=== PATIENT | female | born 1990 | race Caucasian/White ===

== ENCOUNTER 2025-07-06 14:34 | Outpatient (CLI) | payer BC, SELFPAY ==
--- NOTE | ~2025-07-06 | US_ITS ---
EXAMINATION: US OB <=14 wk fetus w TV DATE: 07/06/2025 15:06 INDICATION: . Inconclusive viability. TECHNIQUE: Real-time transabdominal and transvaginal obstetric ultrasound. FINDINGS: No prior studies for comparison. The uterus measures 13.9 x 6.5 x 8.4 cm. There is an intrauterine gestational sac, with pole identified. The crown rump length measures 5.36 cm, which correlates with a estimated gestational age of 12 weeks 0 days. heart tones are identified measuring 169 BPM.. Cervical length measures 3.6 cm. There is a corpus luteal cyst of the left ovary measuring 3.2 cm. IMPRESSION: 1. SL IUP with an EGA of 12 weeks, 0 days (EDC by current ultrasound of 01/18/2026). Reviewed, dictated and finalized at location O. IMPRESSION: 1. SL IUP with an EGA of 12 weeks, 0 days (EDC by current ultrasound of 026).
== END 2025-07-06 14:35 | disposition home or self-care (01) ==
LOC: MICIMG 14:35
PROVIDERS: PCP Obstetrics & Gynecology; Visit Provider Nurse Practitioner Family
DX: O36.80X0 Pregnancy with inconclusive fetal viability, not applicable or unspecified (principal); Z3A.12 12 weeks gestation of pregnancy
CPT/HCPCS: 76801; 76817

== ENCOUNTER 2025-08-25 21:05 | Observation (INO) | payer BC, SELFPAY ==
--- OUTSIDE RECORDS SUMMARY | 2024-04-29 16:30 | XMS_ITS ---
Author Organization [facility] ([address]) Address [address] [place] [address] Care Team Providers Care Machine Binding Folder Name Role Phone Rupal Greenberg DO Primary Care Provider Unavaila Consuelo Barnhart Unavailable [phone] ZZ-Migration, Provider Unavailable Unavailab le REASON FOR VISIT Multum To [facility] Conversion Encounter Medications Medication SIG (Take, Route, Frequency, Duration) Notes Start Date End Date Status Cetirizine HCl 10 MG 1 tab(s) orally once a day Active Tri-Sprintec 0.18/0.215/0.25 MG-35 MCG 1 tab(s) orally once a day Active Encounters Encounter Location Date Provider Diagnosis [address] [address] 04/29/2024 Provider ZZ-Migration Other urticaria L50.8 Assessments Encounter Date Diagnosis (ICD Code) Assessment Notes Treatment Notes Treatment Clinical Notes Section Notes 04/29/2024 Other urticaria (ICD-10 - L50.8) Plan Of Treatment Medication Medication Name Sig Start Date Stop Date Notes Cetirizine HCl 10 MG 1 tab(s) orally once a day Tri-Sprintec 0.18/0.215/0.25 MG-35 MCG 1 tab(s) orally once a day Progress Notes * Deborah AGUILARDOB: [birth year] (35 yo F)Acc No.[id number]:04/29/2024 Patient: Deborah LEÓN Provider: Goran Dennis :1990 A ge:33 Y S ex:Female Date:04/29/2024 Address: [address] [facility] Pcp:Rupal Greenberg DO Subjective: * Chief Complaints: * 1 . Multum To [facility] Conversion Encounter. * Medical History: Objective: * Vitals: Assessment: * Assessment: 1. O ther urticaria - L50.8 Plan: * Treatment: 2. O thers Continue Tri-Sprintec Tablet, 0.18/0.215/0.25 MG-35 MCG, 1 tab(s), orally, once a day. * Billing Information: * Visit Code: * Procedure Codes: * Electronic signature of Breanna LORENZO-Migration on 08/25/2025 at 09:09 PM CDT Sign off status: Pending * Provider: Goran delong Migration Date: 0 04/29/2024 Generated for Adilson alvarado/Larissa/Farrukh on: 1 09:09 PM CDT
--- OUTSIDE RECORDS SUMMARY | 2025-08-25 21:09 | XMS_ITS | Encounter Summary ---
Author Organization [facility] Address [address] [place] [address] Care Team Providers Care Account Classification Clerk Name Role Phone Rupal Greenberg DO Primary Care Provider [phone] Encounter Details Date Type Department Care Team (Late st Contact Info) Description 11/25/2021 MyChart Message Enc [facility] Family Medicine - [place] [address] [facility], [address] [place] [phone] Rupal Greenberg DO [address] [place], [place] [id number] Possible Allergy Social History Tobacco Use Types Packs/Day Years Used Date Smoking Tobacco: Never Smokeless Tobacco: Never Alcohol Use Standard Drinks/Week Comments Yes 0 (1 standard drink = 0.6 oz pur e alcohol) rarely AUDIT-C Answer Date Recorded Frequency of Alcohol Consumption Never 10/03/2018 Average Number of Drinks Not on file 018 Frequency of Binge Drinking Not on file 09/15 PHQ-2 Answer Date Recorded PHQ-2 Score - If the patient scores above 3, please move on to questions 3-9 0 03/31/2021 Comments No Sex and Gender Information Value Date Recorded Sex Assigned at Female 05/17/2025 1:34 PM CDT Legal Sex Female 3:31 PM TRAY SERVER Gender Identity Not on file Sexual Orientation Not on file COVID-19 Exposure Response Date Recorded In the last month, have you been in contact with someone who was confirmed or suspected to have Coronavirus / COVID-19? No / Unsure 11/25/2021 1:49 PM TRAY SERVER documented as of this encounter Progress Notes * Pamela Ivan MA - 11/25/2021 11:17 AM CST Appt made SERVER * Rupal Greenberg DO - 11/25/2021 10:39 AM CST Please make a video visit to discuss or in person SERVER documented in this encounter Plan of Treatment Not on file documented as of this encounter Visit Diagnoses Not on filedocumented in this encounter Additional Health Concerns Infection Onset Date Last Indicated Resolved Time COVID-19 Rule Out 12/15/2024 12/15/2024 12/15/2024 2:14 PM TRAY SERVER Assessment Noted Time PHQ-9 Depression Total Score: 0 03/31/20 21 9:36 AM CDT documented as of this encounter Care Teams Account Classification Clerk Relationship Specialty Start Date End Date Rupal Greenberg DO [facility] [place] [address] PCP - General FAMILY PRACTICE 01/04/20 documented as of this encounter
--- OUTSIDE RECORDS SUMMARY | 2025-08-25 21:09 | XMS_ITS | Encounter Summary ---
Author Organization [facility] Address [address] [place] [address] Care Team Providers Care Sexologist Name Role Phone Rupal Greenberg DO Primary Care Provider [phone] Encounter Details Date Type Department Care Team (Late st Contact Info) Description 12/13/2020 SnowBallt Message Enc [facility] Medical Group Family Medicine - [place] [address] [facility], [address] [place] [phone] Rupal Greenberg DO [address] [place], [place] [address] RE: Question Social History Tobacco Use Types Packs/Day Years [...] 09/15 PHQ-2 Answer Date Recorded PHQ-2 Score 0 01/04/2020 Comments No Sex and Gender Information Value Date Recorded Sex Assigned at Female 05/17/2025 1:34 PM CDT Legal Sex Female 3:31 PM SEALER AIRCRAFT Gender Identity Not on file Sexual Orientation Not on file COVID-19 Exposure Response Date Recorded In the last month, have you been in contact with someone who was confirmed or suspected to have Coronavirus / COVID-19? Yes 12/13/2020 1:40 AM SEALER AIRCRAFT documented as of this encounter Plan of Treatment Not on file documented as of this encounter Visit Diagnoses Not on filedocumented in this encounter Additional Health Concerns Infection Onset Date Last Indicated Resolved Time COVID-19 Rule Out 12/15/2024 12/15/2024 12/15/2024 2:14 PM SEALER AIRCRAFT Assessment Noted Time PHQ-9 Depression Total Score: 2 01/04/20 20 8:55 AM SEALER AIRCRAFT documented as of this encounter Care Teams Sexologist Relationship Specialty Start Date End Date Rupal Greenberg DO [address] [place] [address] PCP - General FAMILY PRACTICE 01/04/20 documented as of this encounter
--- OUTSIDE RECORDS SUMMARY | 2025-08-25 21:09 | XMS_ITS | Encounter Summary ---
Author Organization [facility] Address [address] [place] [address] Care Team Providers Care Clothing Consultant Name Role Phone Rupal Greenberg DO Primary Care Provider [phone] Encounter Details Date Type Department Care Team (Late st Contact Info) Description 07/15/2025 MyCZoomio Holdingt Message Enc [facility] Medical Group Family Medicine - [place] [address] [facility], [address] [place] [phone] Rupal Greenberg DO [address] [place], [place] [phone] New OBGYN Social History Tobacco Use Types Packs/Day Years Used Date Smoking Tobacco: Never Passive Smoke Exposure: Past Smokeless Tobacco: Never Alcohol Use Standard Drinks/Week Comments Not Currently 0 (1 standard drink = 0.6 oz pur e alcohol) rarely AUDIT-C Answer Date Recorded Frequency of Alcohol Consumption Never 10/03/2018 Average Number of Drinks Not on file 018 Frequency of Binge Drinking Not on file 09/15 PHQ-2 Answer Date Recorded Patient Health Questionnaire-2 Score 0 03/20/2024 Comments Yes Sex and Gender Information Value Date Recorded Sex Assigned at Female 05/17/2025 1:34 PM CDT Legal Sex Female 3:31 PM VTC TECHNICIAN Gender Identity Not on file Sexual Orientation Not on file documented as of this encounter Plan of Treatment Not on file documented as of this encounter Visit Diagnoses Not on filedocumented in this encounter Additional Health Concerns Assessment Noted Time PHQ-9 Depression Total Score: 0 03/20/20 24 8:43 AM CDT documented as of this encounter Care Teams Clothing Consultant Relationship Specialty [place] [address] [place] [address] PCP - General FAMILY PRACTICE 01/04/20 documented as of this encounter
--- OUTSIDE RECORDS SUMMARY | 2025-08-25 21:10 | XMS_ITS | Clinical Summary ---
Author Organization [facility] Address [facility] [place] [address] Care Team Providers Care Fire Prevention Forester Name Role Phone Rupal Oseguera DO Primary Care Provider [phone] Allergies No known active allergies Medications Ascorbic Acid (VITAMIN C) 100 MG tablet Take 1 tablet (100 mg total) by mouth daily. Active cetirizine (ZYRTEC) 10 MG tablet Take 1 tablet (10 mg total) by mouth daily. Active EPINEPHrine 0.3 MG/0.3ML injectionIndica tions:Allergy history, seafood INJECT 0.3 ML INTO THE MUSCLE NEEDED FOR ANAPHYLAXIS 2 each 1 5 Active Active Problems Problem Noted Date Diagnosed Date Less than 8 weeks gestation of ([facility]) 05/14/2025 Missed menses 05/14/2025 Prediabetes 01/19/2020 Iron deficiency 01/05/2020 Vitamin D deficiency 01/05/2020 B12 deficiency 01/05/2020 Comments Yes Encounters Date Type Department Care Team Description 07/15/2025 MyChart Message Enc [facility] Family Medicine - [place] [address] [place] [address] Rupal Oseguera DO New OBGYN 06/05/2025 MyChart Message Enc [facility] Family Medicine - [place] [address], [address] [place] [address] Rupal Oseguera DO Nausea from Last 3 Months Immunizations Immunization Administration Dates Next Due Dtap (Generic) 02/13/1994, 0,01/13/1990,1989,1989 Fluzone 6 Months+ Quad (0.5 mL Prefilled Syringe) 01/04/2020 HPV4 (Gardasil) 11/15/2007,06/15/2007,03/15/2007 Hepatitis A (Generic) 01/14/2008,03/15/2007 Hepatitis B (Generic Peds) 02/13/2001,09/15/2000 ,08/15/2000 Influenza Adult (Generic) 07/15/2021 MMR (Generic) 02/13/1994,10/15/1990 Opv 01/22/2011,02/13/1994 Polio Ipv (Generic) 01/13/1991, 0,1989,1988 Polio Opv (Generic) 01/22/2011,02/13/1994 Tdap (Adacel) 01/04/2020 Tdap (Generic) 01/14/2008,06/15/2003 Typhoid 01/22/2011 Yellow Fever Vaccine 03/21/2024,01/22/2011 Family History Medical History Relation Comments Hypertension Brother Alcohol Abuse Father Stroke Father Cancer Maternal Grandfather Bladder CA and Throat Cancer Depression Maternal Grandfather Heart Disease Maternal Grandfather Diabetes Mother Uterine Cancer Mother Alcohol Abuse Paternal Aunt Drug Abuse Paternal Aunt Alcohol Abuse Paternal Grandfather Relation Status Comments Brother Father Maternal Grandfather Mother Paternal Aunt Paternal Grandfather Social History Tobacco Use Types Packs/Day Years Used Date Smoking Tobacco: Never Passive Smoke Exposure: Past Smokeless Tobacco: Never Tobacco Cessation:Counseling Given: No Alcohol Use Standard Drinks/Week Comments Not Currently [...] PM CDT Legal Sex Female 3:31 PM AUDIO PRODUCTION ENGINEER Gender Identity Not on file Sexual Orientation Not on file Last Filed Vital Signs Vital Sign Reading Time Taken Comments Blood Pressure 124/78 05/14/2025 12:54 PM CDT Pulse 116 05/14/2025 12:54 PM CDT Temperature 36.6 C (97.8 F) 05/14/2025 12:54 PM CDT Respiratory Rate 18 05/14/2025 12:5 4 PM CDT Oxygen Saturation 97% 05/14/2025 12: 54 PM CDT Inhaled Oxygen Concentration - - Weight 113.8 kg (250 lb 12.8 oz) 2024 12:54 PM CDT Height 162.6 cm (5' 4) 05/14/2025 12:5 4 PM CDT Body Mass Index 43.05 05/14/2025 12:54 PM CDT Plan of Treatment Health Maintenance Due Date Last Done Comments Hepatitis C 2007 Cervical Cancer Screening Pap Smear (Age 30 to 64) Every 3 Years 01/18/2023 01/19/2020 PHQ-2 (Physician [place]) 11/15/2024 03/20/2024 Cervical Cancer Screening Pap with HPV Testing (Age 30 to 64) Every 5 Years 01/21/2025 01/22/2020 Cervical Cancer Screening with HPV 01/21/2025 Annual Physical 03/20/2025 03/20/2024, 01/19/2020 COVID-19 Vaccine ( season) 2025 09/18/2021, 03/06/2021, 02/13/2021 Influenza Adult (#1) 2025 07/15/2021, 01/04/20 20 DTaP, Tdap and Td Vaccines (8 - Td or Tdap) 01/04/2030 01/04/2020, 01/14/2008, 06/15/2003, Additional history exists RSV Immunization or 60+ Years (1 - 1-dose 75+ series) 2064 Hepatitis B Vaccines Completed 02/13/2001, 09/15/2000, 08/15/2000 HPV Vaccines Completed 11/15/2007, 08/11/2006, 03/15/2007 Meningococcal B Vaccine Aged Out No l onger eligible based on patient's age to complete this topic Meningococcal Vaccine Aged Out No khalif jacoby eligible based on patient's age to complete this topic Pneumococcal Vaccine: Pediatrics (0 to 5 Years) and At-Risk Patients (6 to 49 Years) Aged Out No longer eligible based on patient's age to complete this topic RSV Immunizations Under 20 Months Aged Out No longer eligible based on patient's age to complete this topic Procedures Procedure Name Priority Date/Time Associated Diagnosis Comments CYTOPATH CERV/VAG THIN LAYER Routine 01/19/2020 12:00 AM AUDIO PRODUCTION ENGINEER Women's annual routine gynecological examination from Last 3 Months or Most Recently Relevant to Health Maintenance Results * Cytopath Cerv/Vag Thin Layer (01/19/2020 12:00 AM AUDIO PRODUCTION ENGINEER) COPATH REPORT [address] [phone] Department of Pathology Pathology Report Gynecological Cytology Report Patient Name: THALIA AGUILAR : 1990 (Age: 29) Location: [facility] Gender: F Collected Date: 01/19/2020 Med Rec #: [id number] Date Received: 01/23/2020 Date Reported: 01/23/2020 Provider: RUPAL OSEGUERA DO Final Cytologic Diagnosis Satisfactory for evaluation. Endocervical component present. Negative for Intraepithelial Lesion or Malignancy. Electronically Signed Out By Andriy Yañez Source of Specimen(s) Cervical/Endocervi mary - Thin Prep Clinical History Screening, last Pap not provided. Z01.419 Date of Last Menstrual Period: 10/15/19 Billing Fee Code(s): A: [address] [facility] 01/19/2020 01/23/2020 1:2 6 PM CDT Comment:CERVICAL/ENDOCERVICA L - THIN PREP us Rupal Dionicio DO PATHOLOGY/CYTOLOGY ORDERABLES F inal Result [facility] [address] [place] [address], [place] [phone] from Last 3 Months or Most Recently Relevant to Health Maintenance Insurance [facility] Care Teams Fire Prevention Forester Relationship Specialty Start Date End Date Rupal Oseguera DO [address] [place] [address] PCP - General FAMILY PRACTICE 01/04/20
--- OUTSIDE RECORDS SUMMARY | 2025-08-25 21:10 | XMS_ITS | Encounter Summary ---
Author Organization [facility] Address [address] [place] [address] Care Team Providers Care Nitroglycerin Distributor Name Role Phone Rupal Greenberg DO Primary Care Provider Encounter Details Date Type Department Care Team (Late st Contact Info) Description 06/04/2023 MyCStratio Technologyt Message Enc [facility] Medical [facility] Family Medicine - [place] [address] [facility], [address] [place] [phone] Rupal Greenberg DO [address] [place], [place] [address] Poison Sherron rash Social History Tobacco Use Types Packs/Day Years [...] Date Recorded Patient Health Questionnaire-2 Score 0 06/04/2023 Comments No Sex and Gender Information Value Date Recorded Sex Assigned at Female 05/17/2025 1:34 PM CDT Legal Sex Female 3:31 PM 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 Question Answer Date of Assessment Author Status Little interest or pleasure in doing things Not at all 06/04/2023 8:45 AM CDT Ramez Ocasio MA Active Feeling down, depressed, or hopeless Not at all 06/04/2023 8:45 AM CDT Rodrick Ocasio MA Active Patient Health Questionnaire-2 Score 0 06/04/2023 8:45 AM CDT Greyson Ocasio MA Active * If you checked off any problems on this questionnaire so far, Question Answer Date of Assessment Author Status How difficult have these problems made it for you to do your work, take care of things at home, or get along with other people? Not difficult at all 06/04/2023 8:45 AM CDT Paula Ocasio MA Active documented as of this encounter Plan of Treatment Not on file documented as of this encounter Visit Diagnoses Not on filedocumented in this encounter Additional Health Concerns Infection Onset Date Last Indicated Resolved Time COVID-19 Rule Out 12/15/2024 12/15/2024 12/15/2024 2:14 PM SINGLE SPINDLE SCREW MACHINE OPERATOR Assessment Noted Time PHQ-9 Depression Total Score: 0 03/31/20 9:36 AM CDT documented as of this encounter Care Teams Nitroglycerin Distributor Relationship Specialty Start Date End Date Rupal Greenberg DO [address] [place] [address] PCP - General FAMILY PRACTICE 01/04/20 documented as of this encounter
--- OUTSIDE RECORDS SUMMARY | 2025-08-25 21:10 | XMS_ITS | Encounter Summary ---
Author Organization [facility] Address [address] [place] [address] Care Team Providers Care Airplane Captain Name Role Phone Rupal Greenberg DO Primary Care Provider [phone] Encounter Details Date Type Department Care Team (Late st Contact Info) Description 08/10/2024 LiveNinjat Message Enc [facility] Medical Group Family Medicine - [place] [address] [facility], [address] [place] [phone] Rupal Greenberg DO [address] [place], [place] [address] pap smear Social History Tobacco Use Types Packs/Day Years [...] Patient Health Questionnaire-2 Score 0 03/20/2024 Comments No Sex and Gender Information Value Date Recorded Sex Assigned at Female 05/17/2025 1:34 PM CDT Legal Sex Female 3:31 PM HUMANITIES COORDINATOR Gender Identity Not on file Sexual Orientation Not on file documented as of this encounter Plan of Treatment Not on file documented as of this encounter Visit Diagnoses Not on filedocumented in this encounter Additional Health Concerns Infection Onset Date Last Indicated Resolved Time COVID-19 Rule Out 12/15/2024 12/15/2024 12/15/2024 2:14 PM HUMANITIES COORDINATOR Assessment Noted Time PHQ-9 Depression Total Score: 0 03/20/20 24 8:43 AM CDT documented as of this encounter Care Teams Airplane Captain Relationship Specialty Start Date End Date Rupal Greenberg DO [address] [place] [address] PCP - General FAMILY PRACTICE 01/04/20 documented as of this encounter
--- OUTSIDE RECORDS SUMMARY | 2025-08-25 21:10 | XMS_ITS | Clinical Summary ---
Author Organization [facility] Address [address] [place] [address] Care Team Providers Care Clinical Practitioner Name Role Phone Unavailable Primary Care Provider Unavailabl e Source Comments [facility],non-owned Affiliates and Associated Physician Practices is amultiple site organization consisting of ambulatory clinics and hospital sitesin [place], [place], [place] and [place]. This disclosure is being madepursuant to the Care Everywhere program and may not contain all information available regarding this patient. Last updated 18.[facility] [employer] Allergies No known active allergies Social History Tobacco Use Types Packs/Day Years Used Date Smoking Tobacco: Never Assessed Estimated Date of Delivery Comme nts Yes 01/13/2026 Based on last me nstrual period of 04/08/2025 Sex and Gender Information Value Date Recorded Sex Assigned at Not on file Legal Sex Female 5:47 PM CDT Gender Identity Not on file Sexual Orientation Not on file Plan of Treatment Upcoming Encounters Date Type Department Care Team (Late st Contact Info) Description 08/28/2025 1:45 PM CDT Hospital Encounter [facility]'s Health Maternal & Care [address] [place] [address] Health Maintenance Due Date Last Done Comments HIV SCREENING 2004 HEPATITIS C SCREENING 06/27/2007 DTAP/TDAP/TD VACCINES (1 - Tdap) 2008 HEPATITIS B VACCINE (1 of 3 - 19+ 3-dose series) 2008 PAP SMEAR 2010 HPV VACCINE (1 - 3-dose SCDM series) 2016 DEPRESSION SCREENING 11/15/2024 INFLUENZA VACCINE (#1) 2025 4, 10/15/2023, 08/25/2022, Additional history exists Respiratory Syncytial Virus (RSV) Vaccine Pt: or over 60 yrs (1 - Risk 1-dose series) 11/18/2025 ZOSTER VACCINE (1 of 2) 2039 COVID-19 VACCINE Completed 07/31/2024, 11/2022, 08/25/2022, Additional history exists HIB VACCINE Aged Out No longer eligi ble based on patient's age to complete this topic MENINGOCOCCAL (Group B) VACCINE SHARED DECISION-MAKING Aged Out No longer eligible based on patient's age to complete this topic MENINGOCOCCAL GROUPS A/C/Y/W VACCINE Aged Out No longer eligible based on patient's age to complete this topic PNEUMOCOCCAL VACCINE Aged Out No long er eligible based on patient's age to complete this topic Insurance [facility]
--- OUTSIDE RECORDS SUMMARY | 2025-08-25 21:10 | XMS_ITS | Encounter Summary ---
Author Organization [facility] Address [address] [place] [address] Care Team Providers Care Recycling Program Manager Name Role Phone Rupal Greenberg DO Primary Care Provider [phone] Encounter Details Date Type Department Care Team (Late st Contact Info) Description 06/05/2025 MyCEndoEvolutiont Message Enc [facility] Medical Group Family Medicine - [place] [address] [facility], [address] [place] [phone] Rupal Greenberg DO [address] [place], [place] [address] Nausea Social History Tobacco Use Types Packs/Day Years [...] PM CDT Legal Sex Female 3:31 PM 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
--- OUTSIDE RECORDS SUMMARY | 2025-08-25 21:10 | XMS_ITS | Clinical Summary ---
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 Gender Identity Not on file Sexual Orientation Not on file Plan of Treatment Health Maintenance Due Date Last Done Comments Hepatitis C Virus (HCV) Screening 1989 Pap Smear 2010 Cervical Cancer Screening (CCS) 2019 HPV/Cotest 2019 Influenza Immunization (#1) 2025 01/04/2020 SARS-COV-2 Immunization ( season) 2025 03/06/2021, 02/13/2021 Respiratory Syncytial Virus (RSV) Immunization (Adult) (1 - 1-dose 75+ series) 2064 Hepatitis B Immunization Completed 001, 09/15/2000, 08/15/2000 Human Papillomavirus (HPV) Immunization Completed 11/15/2007, 06/15/2007, 03/15/2007 DTaP/Tdap/Td Immunization Discontinued 2019, 01/14/2008, 06/15/2003, Additional history exists TdaP Immunization Completed 01/04/2020, , 06/15/2003 Meningococcal Immunization (ACWY) Aged Out No longer eligible based on patient's age to complete this topic Pneumococcal Immunization Combined Aged Out No longer eligible based on patient's age to complete this topic Rotavirus Immunization Aged Out No lo nger eligible based on patient's age to complete this topic
--- OUTSIDE RECORDS SUMMARY | 2025-08-25 21:10 | XMS_ITS | Patient Health Record ---
Author Organization [facility] ([address]) Address [address] [place] [address] Care Team Providers Care Heel Compressor Name Role Phone Rupal Greenberg DO Primary Care Provider Get Consuelo Barnhart Unavailable [phone] Allergies No Known Allergies Reason For Referral No Information Medications Medication SIG (Take, Route, Frequency, Duration) Notes Start Date End Date Status Cetirizine HCl 10 MG 1 tab(s) orally once a day Active TRI-SPRINTEC triphasic 35 mcg 1 tab(s) orally once a day A ctive Tri-Sprintec 0.18/0.215/0.25 MG-35 MCG 1 tab(s) orally once a day Active CETIRIZINE 10 mg 1 tab(s) orally once a day Active Social History Tobacco Use: Social History Observation Description Date Details (start date - stop date) Never Smoker NA - NA Smoking Smart Form: Question Answer Notes Are you a: never smoker Problems Problem Type SNOMED Code ICD Code Onset Dates Problem Status W/U Status Risk Notes Problem Chronic allergic conjunctivitis (38027601) Other chronic allergic conjunctivitis (H10.45) Active confirmed Problem Allergic rhinitis (01650264) Other allergic rhinitis (J30.89) Active confirmed Problem Chronic rhinitis (02617796) Chronic rhinitis (J31.0) Active confirmed Problem Allergic rhinitis caused by pollen (disorder) (34903415) Allergic rhinitis due to pollen (J30.1) Active confirmed Problem Allergic rhinitis caused by animal hair and dander (650621386720883) Allergic rhinitis due to animal (cat) (dog) hair and dander (J30.81) Active confirmed Problem Urticaria (310957146) Other urticaria (L50.8) Active confirmed Problem Elevated blood pressure reading without diagnosis of hypertension (664517859) Elevated blood-pressure reading, without diagnosis of hypertension (R03.0) Active confirmed Problem Adverse reaction to food (286237792) Other adverse food reactions, not elsewhere classified, initial encounter (T78.1XXA) Active confirmed Problem Swelling of head (695342061) Localized swelling, mass and lump, head (R22.0) Active confirmed Plan Of Treatment No Information Insurance Providers Payer Name Payer Address Payer Phone Subscriber Number Group Number Insured Name Patient Relationship to Insured Coverage Start Date Coverage End Date [facility] [address] [place] [address] [id number] Deborah Aguilar Self - patient is the insured Medical (General) History Surgical History Surgery Date(Month/Year) Nasal Polyp
--- OUTSIDE RECORDS SUMMARY | 2025-08-25 21:10 | XMS_ITS | Encounter Summary ---
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
[2025-08-25 21:21] VITALS: BP 119/82; PULSE 100
[2025-08-25 21:46] LABS: Add Urine Microscopic? YES; Appearance Urine Cloudy (Clear); Glucose Urine UA Negative (Negative); Leukocyte Esterase Ur Trace LEU/UL (Negative); Nitrate Urine Negative (Negative); Non Pathogenic Casts 0-2; Specific Grav Ur 1.033 (1.001-1.035)
--- NOTE | 2025-08-25 22:20 | PC.NURSE ---
DR. RUEDA RESPONDED TO PAGE. INFORMED ABOUT PT ARRIVAL AND CURRENT PT STATUS. FHTs 155 WITH DOPPLER. SPECULUM EXAM PERFORMED AND NO BLEEDING NOTED IN THE VAGINA OR CERVIX, THICK WHITE DISCHARGE NOTED. LAB RESULTS REVIEWED. ORDERS RECEIVED TO GIVE PT DIFLUCAN NOW AND SEND SCRIPT FOR MACROBID x 5DAYS.
[2025-08-25 22:29] VITALS: BMI 43.0
--- NOTE | 2025-08-25 22:30 | OBADM ---
This patient, Deborah Aguilar, admitted to the OB room OB Post 117 for observation. Patient/family oriented to hospital policies and general routines including ID bracelet, bed and alarms, visiting hours, pain management, procedures, bathroom and other care routines, personal items, smoking policy, room service/diet, and visiting hours. Patient/Family are encouraged to report perceived risks to care and to ask questions if they do not understand what they are told or what they should do.
[2025-08-25] MEDS: NITROFURANTOIN MONOHYD MACROCR 100 MG CAP PO (22:40)
[2025-08-25] MEDS: FLUCONAZOLE 100 MG TABLET PO (22:40)
--- NOTE | 2025-08-25 22:40 | PC.NURSE ---
DISCHARGE INSTRUCTION GIVEN TO PT WRITTEN AND VERBALLY. PT DENIES QUESTIONS OR CONCERNS AND VERBALIZES UNDERSTANDING. PT LEAVES L&D AMBULATORY, NO DISTRESS NOTED.
--- NOTE | 2025-09-07 03:05 | P.PNOB_ITS ---
OB - Triage/Final Diagnosis Visit Information Comments/Additional reasons for admission: I have assessed the risk for this patient, Deborah Aguilar, and determined that she would benefit from observation care. Evaluation Laboratory results: Laboratory Tests 08/25/25 21:18 Urine Color Yellow Urine Appearance Cloudy H Urine pH 5.0 Ur Specific [place] 1.033 Urine Protein Trace Urine Glucose (UA) Negative Urine Ketones Trace H Ur Blood (Man) 1+ H Urine Nitrate Negative Urine Bilirubin Negative Urine Urobilinogen 1.0 Leukocyte Esterase Rfl Trace H Urine RBC 11-20 H Urine WBC 11-20 H Ur Squamous Epith Cells Occasional Calcium Oxalate Crystal Present Urine Bacteria Rare Urine Casts 0-2 Final Diagnosis (1) Spotting affecting : Code(s): O26.859 - Spotting complicating , unspecified trimester Status: Acute
== END 2025-08-25 22:40 | disposition home or self-care (01) ==
PROVIDERS: Admitting Provider Obstetrics & Gynecology; Visit Provider Obstetrics & Gynecology
DX: O26.852 Spotting complicating pregnancy, second trimester (principal); Z3A.19 19 weeks gestation of pregnancy
CPT/HCPCS: 81001; 87086; A9270; G0378; G0379

== ENCOUNTER 2025-10-16 03:02 | Observation (INO) | payer BC, SELFPAY ==
[2025-10-16] VITALS (37 sets, daily range): BP systolic 111–128; BP diastolic 61–77; PULSE 84–97; TEMP 37.1–37.4; O2SAT 93–100; BMI 44.4
--- NOTE | ~2025-10-16 | US_ITS ---
US right upper quadrant Indication: RUQ abdominal pain Comparison: None Technique: Sampson-scale and color Doppler images were obtained. Findings: LIVER: Unremarkable, liver contours intact, no lesions. Normal echogenicity. . GALLBLADDER/BILIARY: Cholelithiasis with wall thickening measuring 5 mm however there is no pericholecystic fluid. CBD 5.4 mm. Delbarton sign negative. PANCREAS: Pancreas limited by bowel gas. Right Kidney: Right kidney 11.6 x 5.7 x 7.1 cm, normal. Impression: 1. Cholelithiasis with minimal wall thickening however there is no pericholecystic fluid to suggest acute cholecystitis. Nuclear medicine HIDA scan suggested to assess as clinically warranted Reviewed, dictated and finalized at location P. M FIELD TECHNICIAN Impression: 1. Cholelithiasis with minimal wall thickening however there is no pericholecys tic fluid to suggest acute cholecystitis. Nuclear medicine HIDA scan suggested to assess as clinically warranted
[2025-10-16 04:11] LABS: Hematocrit 36.8 % (37.0-47.0); Hemoglobin 12.3 g/dL (12.0-15.0); Immature Granulocyte Percent A 0.7 % (0-0.5); Lymphocytes Absolute Auto 2.15 K/mm3 (0.9-3.2); Mean Corpuscular HGB Conc 33.4 g/dl (32-36); Mean Corpuscular Hemoglobin 29.8 pg (26-34); Mean Corpuscular Volume 89.1 fl (80-100); Nucleated Red Blood Cells Absolute Auto 0.000 K/mm3 (0.0-0.012); Nucleated Red Blood Cells Perc 0.0 % (0.0-0.2); Platelet Count Result 217 k/mm3 (150-375); Red Blood Count 4.13 M/mm3 (4.2-5.4); White Blood Count 14.9 K/mm3 (4.5-10.0)
[2025-10-16] MEDS: ONDANSETRON INJ 4 MG/2 ML VIAL IV PUSH (04:12)
--- NOTE | 2025-10-16 04:19 | OBADM ---
This patient, Deborah Aguilar, admitted to the OB room OB Post 116 for observation. Patient/family oriented to hospital policies and general routines including ID bracelet, bed and alarms, visiting hours, pain management, procedures, bathroom and other care routines, personal items, smoking policy, room service/diet, and visiting hours. Patient/Family are encouraged to report perceived risks to care and to ask questions if they do not understand what they are told or what they should do.
[2025-10-16 04:29] LABS: Alanine Aminotransferase 13 U/L (6-35); Albumin Level 3.8 g/dL (3.5-5.1); Alkaline Phosphatase 96 U/L (38-126); Anion Gap 3 mmol/L (4-12); Aspartate Amino Transferase 22 U/L (14-36); Bilirubin,Total 0.5 mg/dL (0.2-1.3); Blood Urea Nitrogen 8 mg/dL (7-17); Calcium 9.2 mg/dL (8.4-10.2); Carbon Dioxide 27 mmol/L (22-30); Chloride 104 mmol/L (98-107); Estimated Glomerular Filt Rate > 60; Glucose 144 mg/dL (65-110); Potassium 3.8 mmol/L (3.4-5.0); Sodium 134 mmol/L (137-145); Total Protein 7.1 g/dL (6.3-8.2)
[2025-10-16] MEDS: CALCIUM CARBONATE (TUMS) 500 MG (200 MG ELEMENTAL) PO (05:13)
[2025-10-16 05:19] LABS: Add Urine Microscopic? YES; Appearance Urine Clear (Clear); Glucose Urine UA Negative (Negative); Leukocyte Esterase Ur Negative LEU/UL (Negative); Nitrate Urine Negative (Negative); Non Pathogenic Casts 0-2; Specific Grav Ur 1.021 (1.001-1.035)
--- NOTE | 2025-10-16 08:47 | WPDCN ---
Assessment and Plan Assessment and plan (1) Gallstones: Code(s): K80.20 - Calculus of gallbladder without cholecystitis without obstruction Status: Acute Assessment and Plan: Pain improved. Patient informed about gallstones and . Discussed low fat diet and option for meds which may help symptoms. Symptoms usually respond to change in diet. Surgery not recommended at this time during , but may need removal of the gallbladder in the future after if symptoms get worse after delivery. Will send referral to Gen Surg for counseling and for them to be aware if she has worsening gallbladder symptoms. HPI Data of Consult Date/Time: 10/16/25 08:47 Requesting Physician: Devon Osborne MD Primary Care Provider: UNKNOWN,DOCTOR Consult Narrative Narrative: Deborah Aguilar is a 35 year old female at 26 weeks presented with acute onset right upper quadrant pain. Improved with zofran and pepcid. Labs with wbc 14. RUQ ultrasound showed gallstones. She did have a higher fat meal the evening before. She has had intermittent RUQ pain. Review of Systems Review of Systems: All systems reviewed & are unremarkable except as noted in HPI and below Constitutional: Constitutional: Reports no additional constitutional complaints and Denies headache(s) Eyes: Eyes: Denies spots in vision ENT: Reports system reviewed and no additional complaints, except as documented and Denies headache(s) Cardiovascular: Cardiovascular: Denies chest pain and Denies dyspnea Respiratory: Respiratory: Denies dyspnea Genitourinary: Genitourinary: Reports amenorrhea Musculoskeletal: Musculoskeletal: Reports no additional musculoskeletal complaints Neurologic: Denies headache(s) Psychiatric: Psychiatric: Reports no additional psychiatric complaints [facility] Past Medical History Medical History Anemia Fibroids Surgical History Surgical History H/O removal of cyst Family History Family History Mother Diabetes mellitus Uterine cancer Father Alcoholism Cerebrovascular accident Sibling Hypertension Grandparent Bladder cancer Cancer Alzheimer disease Social History Social History Smoking status: Never smoker Alcohol intake: never Substance use: never Substance use type: does not use Lack of Transportation: No Lack of Food: Never True Current Housing: I Have Housing Concerned About Future Housing: No Difficulty Paying Gas/Electric Bills: No Difficulty Paying for Meds: No Currently Unemployed: No Education: Bachelor's Degree Difficulty w/ Childcare or Family Care: No Meds Home Medications and Allergies Home Medications ?Medication ?Instructions ?Recorded ?Confirmed ?Type docosahexaenoic acid 200 mg 200 mg PO DAILY 06/18/25 10/19/25 History capsule ( DHA) aspirin 81 mg tablet 162 mg PO DAILY 08/17/25 10/19/25 History cetirizine 10 mg capsule (Zyrtec) 10 mg PO DAILY 08/17/25 10/19/25 History magnesium 200 mg tablet 200 mg PO DAILY 08/17/25 10/19/25 History dicyclomine 10 mg capsule 10 mg PO TID PRN abdominal pain 10/16/25 10/19/25 Rx #30 caps Allergies Allergy/AdvReac Type Severity Reaction Status Date / Time paiz tomatoes AdvReac Intermediate lip Uncoded 10/19/25 15:10 tingling Vital Signs Vital Signs - 24 hr 10/16/25 04:05 10/16/25 04:10 10/16/25 04:15 Temperature Pulse Rate 94 93 Blood Pressure 111/77 113/72 Pulse Oximetry 98 100 98 10/16/25 04:21 10/16/25 04:24 10/16/25 04:26 Temperature 98.7 F 98.7 F Pulse Rate Blood Pressure Pulse Oximetry 100 10/16/25 04:29 10/16/25 04:34 10/16/25 04:39 Temperature Pulse Rate Blood Pressure Pulse Oximetry 100 100 97 10/16/25 04:43 10/16/25 04:45 10/16/25 04:48 Temperature Pulse Rate 90 Blood Pressure 126/65 Pulse Oximetry 97 99 10/16/25 04:53 10/16/25 04:58 10/16/25 05:00 Temperature Pulse Rate 88 Blood Pressure 128/73 Pulse Oximetry 99 98 10/16/25 05:03 10/16/25 05:08 10/16/25 05:13 Temperature Pulse Rate Blood Pressure Pulse Oximetry 98 97 100 10/16/25 05:15 10/16/25 05:18 10/16/25 05:23 Temperature Pulse Rate 87 Blood Pressure 117/70 Pulse Oximetry 98 98 10/16/25 05:28 10/16/25 05:30 10/16/25 05:33 Temperature Pulse Rate 89 Blood Pressure 113/73 Pulse Oximetry 98 97 10/16/25 05:38 10/16/25 05:43 10/16/25 05:45 Temperature Pulse Rate 88 Blood Pressure 125/70 Pulse Oximetry 96 96 10/16/25 05:48 10/16/25 05:53 10/16/25 05:58 Temperature Pulse Rate Blood Pressure Pulse Oximetry 98 96 95 10/16/25 06:00 10/16/25 06:03 10/16/25 06:08 Temperature Pulse Rate 86 Blood Pressure 126/69 Pulse Oximetry 96 93 10/16/25 06:13 10/16/25 06:15 10/16/25 06:18 Temperature Pulse Rate 87 Blood Pressure 120/61 Pulse Oximetry 96 94 10/16/25 08:24 Temperature 99.3 F Pulse Rate Blood Pressure Pulse Oximetry Exam Const: General: no acute distress Eyes: General: appearance normal, both eyes and all related structures Resp: Effort & Inspection: normal respiratory effort Cardio: Rate: regular rate GI: Other: mild right upper quad tender improved from previous Skin: General skin exam: no rashes or lesions noted Neuro: Cognition (Neuro): normal cognition Extrem: General: normal to inspection Psych: Mental Status: mental status grossly normal Results Labs 10/16/25 04:02 10/16/25 04:02 Labs: Short CBC 10/16/25 Range/Units 04:02 WBC 14.9 H (4.5-10.0) K/mm3 Hgb 12.3 (12.0-15.0) g/dL Hct 36.8 L (37.0-47.0) % Plt Count 217 (150-375) k/mm3 BMP 10/16/25 04:02 Sodium 134 L Potassium 3.8 Chloride 104 Carbon Dioxide 27 BUN 8 Creatinine 0.64 L Glucose 144 H Calcium 9.2 Liver Function 10/16/25 Range/Units 04:02 Total Bilirubin 0.5 (0.2-1.3) mg/dL AST 22 (14-36) U/L ALT 13 (6-35) U/L Alkaline Phosphatase 96 (38-126) U/L Albumin 3.8 (3.5-5.1) g/dL Urine 10/16/25 Range/Units 04:46 Urine Color Yellow (Yellow) Urine Appearance Clear (Clear) Urine pH 6.0 (5.0-9.0) Ur Specific [place] 1.021 (1.001-1.035) Urine Protein Trace (Negative) mg/dL Urine Glucose (UA) Negative (Negative) mg/dL
== END 2025-10-16 09:15 | disposition home or self-care (01) ==
PROVIDERS: Admitting Provider Obstetrics & Gynecology; Visit Provider Obstetrics & Gynecology
DX: O26.892 Other specified pregnancy related conditions, second trimester (principal); Z3A.26 26 weeks gestation of pregnancy; K80.20 Calculus of gallbladder without cholecystitis without obstruction; Z79.82 Long term (current) use of aspirin
CPT/HCPCS: 36415; 76705; 80053; 81001; 85025; 87086; 96374; A9270; G0378; G0379; J2405